=== PATIENT | male | born 1985 | race Caucasian/White ===

== ENCOUNTER 2024-10-01 15:19 | Inpatient (IN) | payer OTHER ==
[2024-10-01] MEDS ORDERED: LORazepam 1 MG/0.5 ML VIAL IV PRN (15:42)
--- NOTE | 2024-10-01 15:44 | ED ---
General Adult HPI - General Chief complaint: Alcohol Stated complaint: ETOH,Mental health Time Seen by Provider: 10/01/24 15:39 Source: patient, EMS Limitations: altered mental status - History of Present Illness Initial comments: Dictation was produced using [employer] dictation software. please excuse any grammatical, word or spelling errors. Chief Complaint: 38-year-old male presents with alcohol withdrawal treatment History of Present Illness: Patient 38-year-old male. Patient refusing to speak however will respond with yes or no. Apparently patient is here for treatment of alcohol withdrawal he was trying to check in at [facility] however he had a breath alcohol of greater than 300 and was brought to the emergency department for medical clearance. Patient denies any complaints except for total body pain. Denies any abdominal pain. No nausea vomiting. States that he has been hospitalized for alcohol withdrawal in the past. Drinks pint of liquor daily. The ROS documented in this emergency department record has been reviewed and confirmed by me. Those systems with pertinent positive or negative responses have been documented in the HPI. All other systems are other negative and/or noncontributory. Review of Systems ROS Statement: Those systems with pertinent positive or pertinent negative responses have been documented in the HPI. ROS Other: All systems not noted in ROS Statement are negative. General Exam - General Exam Comments Initial Comments: PHYSICAL EXAM: General Impression: Alert and oriented, not in acute distress HEENT: Normocephalic atraumatic, extra-ocular movements intact, pupils equal and reactive to light bilaterally, mucous membranes moist. Cardiovascular: Heart regular rate and rhythm Chest: Able to complete full sentences, no retractions, no tachypnea Abdomen: abdomen soft, non-tender, non-distended, no organomegaly Musculoskeletal: Pulses present and equal in all extremities, no peripheral edema Motor: no focal deficits noted Neurological: CN II-XII grossly intact, no focal motor or sensory deficits noted Skin: Intact with no visualized rashes Psych: Normal affect and mood Limitations: altered mental status Course Vital Signs 10/01/24 15:21 Pulse Rate 60 Respiratory 17 Rate Blood Pressure 141/90 O2 Sat by Pulse 100 Oximetry EKG Findings - EKG Comments: EKG Findings:: My EKG interpretation: Ventricular rate 64, sinus rhythm, NE 167, QRS 101, QTc 434. No NE prolongation, no QTC prolongation, no ST or T-wave changes noted. Overall, this EKG is unremarkable Medical Decision Making - Medical Decision Making Was pt. sent in by a medical professional or institution (, PA, MANAGER ACTUARIAL, urgent care, hospital, or shelter...) When possible be specific @ -No Did you speak to anyone other than the patient for history (EMS, parent, family, police, friend...)? What history was obtained from this source @ -No Did you review nursing and triage notes (agree or disagree)? Why? @ -I reviewed and agree with nursing and triage notes Were old charts reviewed (outside hosp., previous admission, EMS record, old EKG, old radiological studies, urgent care reports/EKG's, shelter records)? Report findings @ -No old charts were reviewed Differential Diagnosis (chest pain, altered mental status, abdominal pain women, abdominal pain men, vaginal bleeding, musculoskeletal, weakness, fever, dyspnea, syncope, headache, dizziness, GI bleed, back pain, seizure, CVA, palpatations, mental health)? @ -Not applicable EKG interpreted by me (3pts min.). @ -None done X-rays interpreted by me (1pt min.). @ -None done CT interpreted by me (1pt min.). @ -None done U/S interpreted by me (1pt. min.). @ -None done What testing was considered but not performed or refused? (CT, X-rays, U/S, labs)? Why? @ -None What meds were considered but not given or refused? Why? @ -None Was smoking cessation discussed for >3mins.? @ -No Were there social determinants of health that impacted care today? How? (Homelessness, low income, unemployed, alcoholism, drug addiction, transportation, low edu. Level, literacy, decrease access to med. care, intermediate, rehab)? @ -Alcohol dependence Was there de-escalation of care discussed even if they declined (Discuss DNR or withdrawal of care, Hospice)? DNR status @ -No What co-morbidities impacted this encounter? (DM, HTN, Smoking, COPD, CAD, Cancer, CVA, ARF, Chemo, Hep., AIDS, mental health diagnosis, sleep apnea, morbid obesity)? @ -None Was patient admitted / discharged? Hospital course, mention meds given and route, prescriptions, significant lab abnormalities, going to OR and other pertinent info. @ -38-year-old alcoholic male presents to the emergency department for medical clearance at [facility]. Patient states he drinks large amounts of alcohol daily. He did say yes to being admitted for alcohol withdrawal. There is concern that patient is high risk. Patient well-appearing at the bedside. He will be admitted for inpatient alcohol withdrawal monitoring and treatment. Case discussed with hospitalist for admission Did you discuss the management of the patient with other professionals (professionals i.e. , PA, MANAGER ACTUARIAL, lab, RT, psych nurse, social work nurse, tile setter supervisor, teacher, sewage reticulation drafting officer, director of casework department)? Give summary @ -No Was critical care preformed (if so, how long)? @ -No Undiagnosed new problem with uncertain prognosis? @ -No Drug Therapy requiring intensive monitoring for toxicity (Heparin, Nitro, Insulin, Cardizem)? @ -No Were any procedures done? @ -No Diagnosis/symptom? Acute, or Chronic, or Acute on Chronic? Uncomplicated (without systemic symptoms) or Complicated (systemic symptoms)? @ -Alcohol withdrawal Side effects of treatment? @ -No Exacerbation, Progression, or Severe Exacerbation? @ -No Poses a threat to life or bodily function? How? (Chest pain, USA, IN, pneumonia, PE, COPD, DKA, ARF, appy, cholecystitis, CVA, Diverticulitis, Homicidal, Multani icidal, threat to staff... and all critical care pts) @ -yes - Lab Data Result diagrams: 10/01/24 17:20 10/01/24 15:57 Lab Results 10/01/24 10/01/24 10/01/24 Range/Units 15:30 15:57 17:20 WBC 10.61 H (4.50-10.00) 10*3/uL RBC 4.21 L (4.40-5.60) 10*6/uL Hgb 15.0 (13.0-17.0) g/dL Hct 42.0 (39.6-50.0) % MCV 99.8 H (80.0-97.0) fL MCH 35.6 H (27.0-32.0) pg MCHC 35.7 (32.0-37.0) g/dL Plt Count 172 (140-440) 10*3/uL MPV 9.8 (9.5-12.2) fL Immature Gran % (Auto) 0.4 % Neutrophils % 75.8 % Lymphocytes % 20.7 % Monocytes % 2.5 % Eosinophils % 0.3 % Basophils % 0.3 % Immature Gran # 0.04 (0.00-0.04) 10*3/uL Neutrophils # 8.05 H (1.80-7.70) 10*3/uL Lymphocytes # 2.20 (0.90-5.00) 10*3/uL Monocytes # 0.26 (0.20-1.00) 10*3/uL Eosinophils # 0.03 L (0.04-0.35) 10*3/uL Basophils # 0.03 (0.00-0.10) 10*3/uL Sodium 139 (137-145) mmol/L Potassium 4.5 (3.5-5.1) mmol/L Chloride 109 H (98-107) mmol/L Carbon Dioxide 19 L (22-30) mmol/L Anion Gap 11 mmol/L BUN 11 (9-20) mg/dL Creatinine 0.68 (0.66-1.25) mg/dL Est GFR (CKD-EPI)AfAm >90 (>60 ml/min/1.73 sqM) Est GFR (CKD-EPI)NonAf >90 (>60 ml/min/1.73 sqM) Glucose 81 (74-99) mg/dL Calcium 7.6 L (8.4-10.2) mg/dL Magnesium 2.1 (1.6-2.3) mg/dL Total Bilirubin 1.1 (0.2-1.3) mg/dL AST 45 (17-59) U/L ALT 22 (4-49) U/L Alkaline Phosphatase 22 L (38-126) U/L Total Protein 6.9 (6.3-8.2) g/dL Albumin 4.1 (3.5-5.0) g/dL Lipase 99 (23-300) U/L Urine Opiates Screen Not Detected (NotDetected) Ur Oxycodone Screen Not Detected (NotDetected) Urine Methadone Screen Not Detected (NotDetected) Ur Barbiturates Screen Not Detected (NotDetected) U Tricyclic Antidepress Not Detected (NotDetected) Ur Phencyclidine Scrn Not Detected (NotDetected) Ur Amphetamines Screen Not Detected (NotDetected) U Methamphetamines Scrn Not Detected (NotDetected) U Benzodiazepines Scrn Not Detected (NotDetected) Urine Cocaine Screen Not Detected (NotDetected) U Marijuana (THC) Screen Detected H (NotDetected) Serum Alcohol 251 H* mg/dL Disposition Clinical Impression: Alcohol withdrawal syndrome Disposition: ADMITTED IP TO THIS [facility] Condition: Fair Referrals: None,Stated [Primary Care Provider] - 1-2 days Decision Time: 17:42
[2024-10-01 16:30] LABS: Amphetamine Screen,Urine Not Detected (NotDetected); Barbiturate Screen,Urine Not Detected (NotDetected); Benzodiazepines Screen,Urine Not Detected (NotDetected); Cocaine Screen,Urine Not Detected (NotDetected); Methadone Screen, Urine Not Detected (NotDetected); Opiate Screen,Urine Not Detected (NotDetected); Oxycodone Screen, Urine Not Detected (NotDetected); Phencyclidine Screen,Urine Not Detected (NotDetected); Tricyclic Antidepressant,Urine Not Detected (NotDetected); Urn Cannabinoid Scrn Detected (NotDetected)
[2024-10-01 16:40] LABS: ALT 22 U/L (4-49); African American GFR (CKD) >90 (>60 ml/min/1.73 sqM); Anion Gap 11 mmol/L; Blood Urea Nitrogen 11 mg/dL (9-20); Calcium 7.6 mg/dL (8.4-10.2); Carbon Dioxide 19 mmol/L (22-30); Chloride 109 mmol/L (98-107); Glucose 81 mg/dL (74-99); Lipase 99 U/L (23-300); Non-African American GFR(CKD) >90 (>60 ml/min/1.73 sqM); Sodium 139 mmol/L (137-145); Total Bilirubin 1.1 mg/dL (0.2-1.3)
[2024-10-01 16:43] LABS: Alcohol 251 mg/dL; Potassium 4.5 mmol/L (3.5-5.1)
[2024-10-01 16:44] LABS: AST 45 U/L (17-59); Albumin 4.1 g/dL (3.5-5.0); Alkaline Phosphatase 22 U/L (38-126); Magnesium 2.1 mg/dL (1.6-2.3); Total Protein 6.9 g/dL (6.3-8.2)
[2024-10-01] MEDS: SODIUM CHLORIDE 0.9% 1,000 ML IV STA (17:15)
[2024-10-01 17:37] LABS: Basophils # (A) 0.03 10*3/uL (0.00-0.10); Basophils % (A) 0.3 %; Eosinophils # (A) 0.03 10*3/uL (0.04-0.35); Eosinophils % (A) 0.3 %; Lymphocytes % (A) 20.7 %; MCH 35.6 pg (27.0-32.0); MCHC 35.7 g/dL (32.0-37.0); MCV 99.8 fL (80.0-97.0); Mean Platelet Volume 9.8 fL (9.5-12.2); Monocytes # (A) 0.26 10*3/uL (0.20-1.00); Monocytes % (A) 2.5 %; Neutrophils # (A) 8.05 10*3/uL (1.80-7.70); Neutrophils % (A) 75.8 %; Platelet Count 172 10*3/uL (140-440); RBC 4.21 10*6/uL (4.40-5.60); RDW 12.5 % (11.5-14.5); WBC 10.61 10*3/uL (4.50-10.00)
[2024-10-01] MEDS ORDERED: NALOXONE 0.4 MG/ML 1 ML VIAL IV PRN (17:40)
[2024-10-01] MEDS: SODIUM CHLORIDE 0.9% 1,000 ML IV SCH (19:15)
[2024-10-01] MEDS ORDERED: ACETAMINOPHEN TAB 325 MG TAB PO PRN (19:19)
--- NOTE | 2024-10-01 19:26 | P.HPIM ---
History of Present Illness H&P Date: 10/01/24 History of present illness; Patient is a 38-year-old male with alcohol use disorder who presents for alcohol withdrawal. Patient is poor historian. Patient was attempting to check into [place], however alcohol was greater than 300 and send to emergency room for medical clearance. He is denying any abdominal pain, nausea, vomiting. He endorses drinking a pint of liquor daily. He has had alcohol withdrawal in the past. He also endorses withdrawal seizures and delirium tremens but withdrawing in the past. He has no other complaints at this time. Spoke with the ER physician, patient admission was accepted by internal medicine service for treatment. REVIEW OF SYSTEMS: Pertinent positives and negatives noted in HPI. PHYSICAL EXAMINATION: Vitals reviewed GENERAL: Resting comfortably in bed. EYES: PERRL, no scleral injection or icterus. No vision loss HENT: Normocephalic, atraumatic, hearing grossly intact, moist mucous membranes NECK: No tracheal deviation, full range of motion. CARDIOVASCULAR: S1 and S2 present. Tachycardic. No murmurs, rubs, or gallops. PULMONARY: Chest is clear to auscultation, no wheezing, rhonchi, or crackles. ABDOMEN: Soft, nontender, nondistended. No palpable organomegaly. MUSCULOSKELETAL: No apparent joint swelling and deformities. EXTREMITIES: No apparent cyanosis, clubbing. No pedal edema. NEUROLOGICAL: Alert and oriented. Gross neurological examination with no apparent focal deficits. Mild hand tremor. SKIN: No apparent rashes. ER FINDINGS: Labs significant for WBC 10.6, bicarb 19, calcium 7.6, alkaline phosphatase 22, urine tox with marijuana, serum alcohol 251, lipase 99 EKG with findings of ventricular rate 64, sinus rhythm, IA 167, QRS 101, QTc 434. No IA prolongation, no QTC prolongation, no ST or T-wave changes noted Assessment and Plan: In summary, Patient is a 38-year-old male with alcohol use disorder who presents for alcohol withdrawal. #Alcohol dependence with impending withdrawal #Leukocytosis, likely reactive - Alcohol 251, last drink was 5/8 in AM - CIWA protocol with Ativan IVP in place Daily thiamine and folic acid - Monitor for Dts Seizure precautions monitor daily electrolytes - social security specialist consult Chronic Medical Conditions #Depression #Seizures Resume home medications DVT ppx: Subq Lovenox 40 meq daily Code status: Full code F: PO E: Replete as needed N: Heart healthy diet A: Ambulatory Anticipated discharge place: Home Anticipated discharge time: 2 to 3 days Dictation was produced using [employer] dictation software. Please excuse any gramm atical, word or spelling errors. I saw and evaluated the patient during the hoyos and critical portions of this encounter, and discussed the case in detail with the resident author of this note, I agree with the Assessment and Plan, and my changes, if any, are highlighted in blue. Past Medical History Past Medical History: Unable to Obtain History of Any Multi-Drug Resistant Organisms: None Reported Past Surgical History: Unable to Obtain Past Psychological History: Unable to Obtain Past Alcohol Use History: Heavy Past Drug Use History: Unable to Obtain Medications and Allergies Home Medications Medication Instructions Recorded Confirmed Type Citalopram Hydrobromide [CeleXA] 40 mg PO HS 10/01/24 10/01/24 History Finasteride 1 mg PO HS 10/01/24 10/01/24 History lamoTRIgine [LaMICtal] 100 mg PO BID 10/01/24 10/01/24 History traZODone HCL [Desyrel] 50 mg PO HS 10/01/24 10/01/24 History Allergies Allergy/AdvReac Type Severity Reaction Status Date / Time No Known Allergies Allergy Verified 10/01/24 23:06 Physical Exam Osteopathic Statement: *. No significant issues noted on an osteopathic structural exam other than those noted in the History and Physical/Consult. Vitals: Vital Signs Pulse Resp BP Pulse Ox 10/01/24 15:21 60 17 141/90 100 Intake and Output 10/01/24 10/01/24 10/01/24 06:59 14:59 22:59 Other: Weight 75 kg Results CBC & Chem 7: 10/01/24 17:20 10/01/24 15:57 Labs: Abnormal Lab Results - Last 24 Hours (Table) 10/01/24 10/01/24 10/01/24 Range/Units 15:30 15:57 17:20 WBC 10.61 H (4.50-10.00) 10*3/uL RBC 4.21 L (4.40-5.60) 10*6/uL MCV 99.8 H (80.0-97.0) fL MCH 35.6 H (27.0-32.0) pg Neutrophils # 8.05 H (1.80-7.70) 10*3/uL Eosinophils # 0.03 L (0.04-0.35) 10*3/uL Chloride 109 H (98-107) mmol/L Carbon Dioxide 19 L (22-30) mmol/L Calcium 7.6 L (8.4-10.2) mg/dL Alkaline Phosphatase 22 L (38-126) U/L U Marijuana (THC) Screen Detected H (NotDetected) Serum Alcohol 251 H* mg/dL
[2024-10-01] MEDS: LORazepam 1 MG/0.5 ML VIAL IV PRN (20:48)
[2024-10-01] MEDS: traZODone HCL 50 MG TAB PO SCH (22:18)
[2024-10-01] MEDS: CITALOPRAM HYDROBROMIDE 20 MG TAB PO SCH (22:18)
[2024-10-01] MEDS: lamoTRIgine 100 MG TAB PO SCH (22:18)
[2024-10-01] MEDS: THIAMINE 100 MG TAB PO SCH (22:18)
[2024-10-01] MEDS: FOLIC ACID-VIT B COMPLEX-VIT C 1 CAP PO SCH (22:30)
[2024-10-01] MEDS: ENOXAPARIN 40 MG/0.4 ML SYRINGE SQ STA (22:31)
[2024-10-02] MEDS: LORazepam 1 MG/0.5 ML VIAL IV PRN (05:38)
[2024-10-02 07:48] VITALS: BP 120/77; PULSE 69; RESP 18; TEMP 98.5
[2024-10-02 08:21] LABS: Basophils # (A) 0.05 X 10*3/uL (0.00-0.10); Basophils % (A) 0.7 %; Eosinophils % (A) 1.4 %; HCT 40.1 % (39.6-50.0); Lymphocytes # (A) 1.85 X 10*3/uL (0.90-5.00); Lymphocytes % (A) 25.9 %; MCH 35.2 pg (27.0-32.0); MCHC 34.9 g/dL (32.0-37.0); MCV 100.8 FL (80.0-97.0); Mean Platelet Volume 10.1 FL (9.5-12.2); Monocytes # (A) 0.38 X 10*3/uL (0.20-1.00); Monocytes % (A) 5.3 %; NRBC Per 100 WBC 0 X 10*3/uL (0.00-0.01); Neutrophils # (A) 4.73 X 10*3/uL (1.80-7.70); Neutrophils % (A) 66.4 %; Platelet Count 175 X 10*3/uL (140-440); RBC 3.98 X 10*6/uL (4.40-5.60); RDW 12.7 % (11.5-14.5); WBC 7.13 X 10*3/uL (4.50-10.00)
[2024-10-02 08:27] LABS: BUN/Creat Ratio 11.75 Ratio (12.00-20.00); Blood Urea Nitrogen 9.4 mg/dL (9.0-27.0); Glucose 90 mg/dL (70-110)
[2024-10-02 08:28] LABS: ALT 19 U/L (10-49); AST 16 U/L (14-35); Albumin 3.9 g/dL (3.8-4.9); Albumin/Globulin Ratio 1.77 Ratio (1.60-3.17); Alkaline Phosphatase 48 U/L (41-126); Calcium 8.5 mg/dL (8.7-10.3); Carbon Dioxide 21.5 mmol/L (21.6-31.8); Chloride 110 mmol/L (96-109); Globulin 2.2 g/dL (1.6-3.3); Potassium 4.2 mmol/L (3.5-5.5); Sodium 141 mmol/L (135-145); Total Bilirubin <0.2 mg/dL (0.3-1.2); Total Protein 6.1 g/dL (6.2-8.2)
[2024-10-02] MEDS: ENOXAPARIN 40 MG/0.4 ML SYRINGE SQ SCH (09:24)
--- NOTE | 2024-10-02 15:12 | P.PN ---
Subjective Progress Note Date: 10/02/24 Hospital Course: Patient is a 38-year-old male with alcohol use disorder who presents for alcohol withdrawal. Patient is poor historian. Patient was attempting to check into [place], however alcohol was greater than 300 and send to emergency room for medical clearance. He is denying any abdominal pain, nausea, vomiting. He endorses drinking a pint of liquor daily. He has had alcohol withdrawal in the past. He also endorses withdrawal seizures and delirium tremens but withdrawing in the past. He has no other complaints at this time. ER FINDINGS: Labs significant for WBC 10.6, bicarb 19, calcium 7.6, alkaline phosphatase 22, urine tox with marijuana, serum alcohol 251, lipase 99 EKG with findings of ventricular rate 64, sinus rhythm, IN 167, QRS 101, QTc 434. No IN prolongation, no QTC prolongation, no ST or T-wave changes noted Spoke with the ER physician, patient admission was accepted by internal medicine service for treatment. 10/02: Patient was seen and examined at bedside, does not appear to be in acute distress, not intoxicated. Patient was requesting his Ativan to be switched to Ativan/Subutex as it was previously helpful, also requested 1 mg of finasteride as well as Chantix that he is successfully using to quit smoking. Patient shared that he is cutting down on his cocaine use. His CIWA's are around 6 and 8 today Patient will not be provided with Subutex, high risk of sedation with concomitant use of Ativan, patient is also active alcoholic, thus, not an ideal candidate for buprenorphine, he can readdress it with his primary care physician or clinical exercise specialist. Pertinent positives and negatives as discussed above, a complete review of syst ems was performed and all other systems are negative. Vitals Signs Reviewed. General: [nontoxic], [no distress], [appears at stated age] Derm: [warm], [dry] Head: [atraumatic], [normocephalic], [symmetric] Eyes: [EOMI], [no lid lag], [anicteric sclera] Mouth: [no lip lesion], [mucus membranes moist] Cardiovascular: [S1S2 reg], [no murmur] Lungs: [CTA bilateral], [no rhonchi, no rales] , [no accessory muscle use] Abdominal: [soft], [ nontender to palpation], [no guarding], [no appreciable org anomegaly] Ext: [no gross muscle atrophy], [no edema], [no contractures] Neuro: [ CN II-XI grossly intact], [no focal neuro deficits] Psych: [Alert], [oriented], [appropriate affect] Assessment and Plan: Alcohol intoxication Alcohol withdrawal Leukocytosis, reactive, resolved - Alcohol 251, last drink was 5/8 in AM - WA protocol with Ativan IVP in place Daily thiamine and folic acid - Monitor for Dts Seizure precautions monitor daily electrolytes - group social worker consult Cocaine use disorder -Patient requested Subutex, as above, will proceed with Ativan for now, patient to follow-up with primary care physician and clinical exercise specialist Tobacco use disorder -Patient requested varenicline, patient will not be provided with prescription, high risk for seizure given diagnosed history of seizure disorder, active alcohol use, withdrawal Depression: Continue Celexa 40 mg nightly Seizure disorder continue Lamictal 100 mg twice daily DVT ppx: Lovenox Code status: Full code Anticipated discharge place: Home Anticipated discharge time: 10/03 Objective - Vital Signs Vital signs: Vital Signs Temp 98.5 F 10/02/24 07:10 Pulse 69 10/02/24 07:10 Resp 18 10/02/24 07:10 BP 120/77 10/02/24 07:10 Pulse Ox 97 10/02/24 07:10 FiO2 Intake & Output 10/01/24 10/02/24 10/02/24 18:59 06:59 18:59 Intake Total 0 Balance 0 Weight 75 kg 75 kg Intake: Oral 0 Other: Voiding Method Toilet # Voids 0 - Labs CBC & Chem 7: 10/02/24 05:15 10/02/24 05:15 Labs: Abnormal Lab Results - Last 24 Hours (Table) 10/01/24 10/01/24 10/01/24 Range/Units 15:30 15:57 17:20 WBC 10.61 H (4.50-10.00) 10*3/uL RBC 4.21 L (4.40-5.60) 10*6/uL MCV 99.8 H (80.0-97.0) fL MCH 35.6 H (27.0-32.0) pg Neutrophils # 8.05 H (1.80-7.70) 10*3/uL Eosinophils # 0.03 L (0.04-0.35) 10*3/uL Chloride 109 H (98-107) mmol/L Carbon Dioxide 19 L (22-30) mmol/L BUN/Creatinine Ratio (12.00-20.00) Ratio Calcium 7.6 L (8.4-10.2) mg/dL Total Bilirubin (0.3-1.2) mg/dL Alkaline Phosphatase 22 L (38-126) U/L Total Protein (6.2-8.2) g/dL U Marijuana (THC) Screen Detected H (NotDetected) Serum Alcohol 251 H* mg/dL 10/02/24 10/02/24 Range/Units 05:15 05:15 WBC (4.50-10.00) 10*3/uL RBC 3.98 L (4.40-5.60) 10*6/uL MCV 100.8 H (80.0-97.0) fL MCH 35.2 H (27.0-32.0) pg Neutrophils # (1.80-7.70) 10*3/uL Eosinophils # (0.04-0.35) 10*3/uL Chloride 110 H (98-107) mmol/L Carbon Dioxide 21.5 L (22-30) mmol/L BUN/Creatinine Ratio 11.75 L (12.00-20.00) Ratio Calcium 8.5 L (8.4-10.2) mg/dL Total Bilirubin <0.2 L (0.3-1.2) mg/dL Alkaline Phosphatase (38-126) U/L Total Protein 6.1 L (6.2-8.2) g/dL U Marijuana (THC) Screen (NotDetected) Serum Alcohol mg/dL
--- NOTE | 2024-10-02 16:54 | P.DS ---
Providers Date of admission: 10/01/24 17:41 Attending physician: Ivan Jarquin Primary care physician: Stated None Hospital Course: Discharge Diagnosis: Left AMA Alcohol intoxication Alcohol withdrawal Cocaine use disorder Tobacco use disorder Depression Seizure disorder Hospital Course: Patient is a 38-year-old male with alcohol use disorder who presents for alcohol withdrawal. Patient is poor historian. Patient was attempting to check into [place], however alcohol was greater than 300 and send to emergency room for medical clearance. He is denying any abdominal pain, nausea, vomiting. He endorses drinking a pint of liquor daily. He has had alcohol withdrawal in the past. He also endorses withdrawal seizures and delirium tremens but withdrawing in the past. He has no other complaints at this time. ER FINDINGS: Labs significant for WBC 10.6, bicarb 19, calcium 7.6, alkaline phosphatase 22, urine tox with marijuana, serum alcohol 251, lipase 99 EKG with findings of ventricular rate 64, sinus rhythm, AL 167, QRS 101, QTc 434. No AL prolongation, no QTC prolongation, no ST or T-wave changes noted Spoke with the ER physician, patient admission was accepted by internal medicine service for treatment. 10/02: Patient was seen and examined at bedside, does not appear to be in acute distress, not intoxicated. Patient was requesting his Ativan to be switched to Ativan/Subutex as it was previously helpful, also requested 1 mg of finasteride as well as Chantix that he is successfully using to quit smoking. Patient shared that he is cutting down on his cocaine use. His CIWA's are around 6 and 8 today Patient will not be provided with Subutex, high risk of sedation with concomitant use of Ativan, patient is also active alcoholic, thus, not an ideal candidate for buprenorphine, he can readdress it with his primary care physician or environmental services specialist. Patient left AMA Patient Condition at Discharge: Fair Plan - Discharge Summary Discharge Rx Participant: No New Discharge Prescriptions: No Action traZODone HCL [Desyrel] 50 mg PO HS Citalopram Hydrobromide [CeleXA] 40 mg PO HS lamoTRIgine [LaMICtal] 100 mg PO BID Finasteride 1 mg PO HS Discharge Medication List Citalopram Hydrobromide [CeleXA] 40 mg PO HS 10/01/24 [History] Finasteride 1 mg PO HS 10/01/24 [History] lamoTRIgine [LaMICtal] 100 mg PO BID 10/01/24 [History] traZODone HCL [Desyrel] 50 mg PO HS 10/01/24 [History] Follow up Appointment(s)/Referral(s): None,Stated [Primary Care Provider] - 1-2 days Discharge Disposition: LEFT AGAINST MEDICAL ADVICE
[2024-10-02] MEDS ORDERED: FINASTERIDE 1 MG PO SCH (21:00)
== END 2024-10-02 16:27 | disposition left against medical advice (07) | DRG 894 ==
LOC: EC 15:19 → 4SSUR 17:41
PROVIDERS: ADMIT Student in an Organized Health Care Education/Training Program; ATTEND Student in an Organized Health Care Education/Training Program
PROC: HZ2ZZZZ Detoxification Services for Substance Abuse Treatment (ICD-10-PCS; principal; 2024-10-01)
DX: F10.239 Alcohol dependence with withdrawal, unspecified (principal); D72.829 Elevated white blood cell count, unspecified; F10.229 Alcohol dependence with intoxication, unspecified; F14.10 Cocaine abuse, uncomplicated; G40.909 Epilepsy, unspecified, not intractable, without status epilepticus; F32.A Depression, unspecified; Y90.7 Blood alcohol level of 200-239 mg/100 ml; F17.200 Nicotine dependence, unspecified, uncomplicated; Z53.29 Procedure and treatment not carried out because of patient's decision for other reasons; Z79.899 Other long term (current) drug therapy; Z71.41 Alcohol abuse counseling and surveillance of alcoholic; Z71.6 Tobacco abuse counseling
CPT/HCPCS: 36415; 80053; 80175; 80306; 80320; 83690; 83735; 85025; 93005; 96374; 96376; 99285

== ENCOUNTER 2024-10-02 18:39 | Inpatient (IN) | payer OTHER ==
[2024-10-02] MEDS ORDERED: LORazepam 1 MG/0.5 ML VIAL IV PRN ×2 (19:24)
--- NOTE | 2024-10-02 19:30 | ED ---
General Adult HPI - General Chief complaint: Alcohol Stated complaint: alcohol detox Time Seen by Provider: 10/02/24 19:14 Source: patient Mode of arrival: ambulatory Limitations: no limitations - History of Present Illness Initial comments: Dictation was produced using [employer] dictation software. please excuse any grammatical, word or spelling errors. Chief Complaint: 38-year-old male presents to the emergency department for alcohol detoxification History of Present Illness: Patient 38-year-old male he was here yesterday for the same issue. He left AMA. States that he is here today and is serious about quitting alcohol. Patient states he had some alcohol today. He wants to quit everything including opiate abuse. Patient denies any symptoms at this time. States that he left AMA because it was not clear what his treatment plan was during the admission The ROS documented in this emergency department record has been reviewed and confirmed by me. Those systems with pertinent positive or negative responses have been documented in the HPI. All other systems are other negative and/or noncontributory. - Related Data Home Medications Medication Instructions Recorded Confirmed Citalopram Hydrobromide [CeleXA] 40 mg PO HS 10/01/24 10/02/24 Finasteride 1 mg PO HS 10/01/24 10/02/24 lamoTRIgine [LaMICtal] 100 mg PO BID 10/01/24 10/02/24 traZODone HCL [Desyrel] 50 mg PO HS 10/01/24 10/02/24 Allergies Allergy/AdvReac Type Severity Reaction Status Date / Time No Known Allergies Allergy Verified 10/02/24 20:35 Review of Systems ROS Statement: Those systems with pertinent positive or pertinent negative responses have been documented in the HPI. ROS Other: All systems not noted in ROS Statement are negative. Past Medical History Past Medical History: No Reported History History of Any Multi-Drug Resistant Organisms: None Reported Past Surgical History: Appendectomy Past Psychological History: Anxiety, Depression Smoking Status: Current every day smoker Past Alcohol Use History: Daily, Heavy Past Drug Use History: Opiates, Prescription Drug Abuse General Exam - General Exam Comments Initial Comments: PHYSICAL EXAM: General Impression: Alert and oriented x3, not in acute distress HEENT: Normocephalic atraumatic, extra-ocular movements intact, pupils equal and reactive to light bilaterally, mucous membranes moist. Cardiovascular: Heart regular rate and rhythm Chest: Able to complete full sentences, no retractions, no tachypnea Abdomen: abdomen soft, non-tender, non-distended, no organomegaly Musculoskeletal: Pulses present and equal in all extremities, no peripheral edema Motor: no focal deficits noted Neurological: CN II-XII grossly intact, no focal motor or sensory deficits noted Skin: Intact with no visualized rashes Psych: Normal affect and mood Limitations: no limitations Course Vital Signs 10/02/24 19:09 Temperature 98 F Pulse Rate 100 Respiratory 20 Rate Blood Pressure 112/69 O2 Sat by Pulse 98 Oximetry EKG Findings - EKG Comments: EKG Findings:: My EKG interpretation: Ventricular rate 81, sinus rhythm, OR interval 157, QRS 110, QTc 436. No OR prolongation, no QTC prolongation, no ST or T-wave changes noted. Overall, this EKG is unremarkable Medical Decision Making - Medical Decision Making Was pt. sent in by a medical professional or institution (, PA, [employer], urgent care, hospital, or senior care...) When possible be specific @ -No Did you speak to anyone other than the patient for history (EMS, parent, family, police, friend...)? What history was obtained from this source @ -No Did you review nursing and triage notes (agree or disagree)? Why? @ -I reviewed and agree with nursing and triage notes Were old charts reviewed (outside hosp., previous admission, EMS record, old EKG, old radiological studies, urgent care reports/EKG's, senior care records)? Report findings @ -No old charts were reviewed Differential Diagnosis (chest pain, altered mental status, abdominal pain women, abdominal pain men, vaginal bleeding, musculoskeletal, weakness, fever, dyspnea, syncope, headache, dizziness, GI bleed, back pain, seizure, CVA, palpatations, mental health)? @ -Not applicable EKG interpreted by me (3pts min.). @ -See above X-rays interpreted by me (1pt min.). @ -None done CT interpreted by me (1pt min.). @ -None done U/S interpreted by me (1pt. min.). @ -None done What testing was considered but not performed or refused? (CT, X-rays, U/S, labs)? Why? @ -None What meds were considered but not given or refused? Why? @ -None Was smoking cessation discussed for >3mins.? @ -No Were there social determinants of health that impacted care today? How? (Homelessness, low income, unemployed, alcoholism, drug addiction, transportation, low edu. Level, literacy, decrease access to med. care, residential, rehab)? @ -Alcohol dependence Was there de-escalation of care discussed even if they declined (Discuss DNR or withdrawal of care, Hospice)? DNR status @ -No What co-morbidities impacted this encounter? (DM, HTN, Smoking, COPD, CAD, Canc er, CVA, ARF, Chemo, Hep., AIDS, mental health diagnosis, sleep apnea, morbid obesity)? @ -None Was patient admitted / discharged? Hospital course, mention meds given and route, prescriptions, significant lab abnormalities, going to OR and other pertinent info. @ -38-year-old alcoholic male seeking alcohol withdrawal treatment. Vital signs stable. Physical examination benign. Serum alcohol is 253 rest of labs unremarkable. Patient will be admitted. Case discussed hospitalist for admission Did you discuss the management of the patient with other professionals (professionals i.e. , PA, [employer], lab, RT, psych nurse, social science research assistant, continuous drier helper, teacher, professional security officer, telehealth case manager)? Give summary @ -See above Was critical care preformed (if so, how long)? @ -No Undiagnosed new problem with uncertain prognosis? @ -No Drug Therapy requiring intensive monitoring for toxicity (Heparin, Nitro, Insulin, Cardizem)? @ -No Were any procedures done? @ -No Diagnosis/symptom? Acute, or Chronic, or Acute on Chronic? Uncomplicated (without systemic symptoms) or Complicated (systemic symptoms)? @ -Alcohol dependence Side effects of treatment? @ -No Exacerbation, Progression, or Severe Exacerbation? @ -No Poses a threat to life or bodily function? How? (Chest pain, [place], [place], pneumonia, PE, COPD, DKA, ARF, appy, cholecystitis, CVA, Diverticulitis, Homicidal, Suicidal, threat to staff... and all critical care pts) @ -yes - Lab Data Result diagrams: 10/02/24 19:41 10/02/24 19:41 Lab Results 10/02/24 10/02/24 Range/Units 19:41 19:41 WBC 7.35 (4.50-10.00) 10*3/uL RBC 3.71 L (4.40-5.60) 10*6/uL Hgb 13.5 (13.0-17.0) g/dL Hct 36.3 L (39.6-50.0) % MCV 97.8 H (80.0-97.0) fL MCH 36.4 H (27.0-32.0) pg MCHC 37.2 H (32.0-37.0) g/dL Plt Count 157 (140-440) 10*3/uL MPV 9.8 (9.5-12.2) fL Immature Gran % (Auto) 0.3 % Neutrophils % 64.0 % Lymphocytes % 27.9 % Monocytes % 6.8 % Eosinophils % 0.5 % Basophils % 0.5 % Immature Gran # 0.02 (0.00-0.04) 10*3/uL Neutrophils # 4.70 (1.80-7.70) 10*3/uL Lymphocytes # 2.05 (0.90-5.00) 10*3/uL Monocytes # 0.50 (0.20-1.00) 10*3/uL Eosinophils # 0.04 (0.04-0.35) 10*3/uL Basophils # 0.04 (0.00-0.10) 10*3/uL Sodium 137 (137-145) mmol/L Potassium 3.2 L (3.5-5.1) mmol/L Chloride 107 (98-107) mmol/L Carbon Dioxide 18 L (22-30) mmol/L Anion Gap 12 mmol/L BUN 11 (9-20) mg/dL Creatinine 0.74 (0.66-1.25) mg/dL Est GFR (CKD-EPI)AfAm >90 (>60 ml/min/1.73 sqM) Est GFR (CKD-EPI)NonAf >90 (>60 ml/min/1.73 sqM) Glucose 98 (74-99) mg/dL Calcium 8.7 (8.4-10.2) mg/dL Magnesium 2.2 (1.6-2.3) mg/dL Serum Alcohol 253 H* mg/dL Disposition Clinical Impression: Alcohol intoxication Disposition: ADMITTED IP TO THIS HOSP Condition: Fair Referrals: None,Stated [Primary Care Provider] - 1-2 days Decision Time: 19:30
[2024-10-02 19:53] LABS: Basophils # (A) 0.04 10*3/uL (0.00-0.10); Basophils % (A) 0.5 %; Eosinophils # (A) 0.04 10*3/uL (0.04-0.35); Eosinophils % (A) 0.5 %; HCT 36.3 % (39.6-50.0); HGB 13.5 g/dL (13.0-17.0); Lymphocytes # (A) 2.05 10*3/uL (0.90-5.00); Lymphocytes % (A) 27.9 %; MCH 36.4 pg (27.0-32.0); MCHC 37.2 g/dL (32.0-37.0); MCV 97.8 fL (80.0-97.0); Mean Platelet Volume 9.8 fL (9.5-12.2); Monocytes % (A) 6.8 %; Platelet Count 157 10*3/uL (140-440); RBC 3.71 10*6/uL (4.40-5.60); WBC 7.35 10*3/uL (4.50-10.00)
[2024-10-02 20:04] LABS: African American GFR (CKD) >90 (>60 ml/min/1.73 sqM); Anion Gap 12 mmol/L; Blood Urea Nitrogen 11 mg/dL (9-20); Calcium 8.7 mg/dL (8.4-10.2); Carbon Dioxide 18 mmol/L (22-30); Chloride 107 mmol/L (98-107); Glucose 98 mg/dL (74-99); Magnesium 2.2 mg/dL (1.6-2.3); Non-African American GFR(CKD) >90 (>60 ml/min/1.73 sqM); Potassium 3.2 mmol/L (3.5-5.1); Sodium 137 mmol/L (137-145)
[2024-10-02 20:32] LABS: Alcohol 253 mg/dL
[2024-10-02] MEDS ORDERED: NALOXONE 0.4 MG/ML 1 ML VIAL IV PRN (20:47)
--- NOTE | 2024-10-02 21:14 | P.HPIM ---
History of Present Illness H&P Date: 10/02/24 History of present illness; Patient is a 38-year-old male with alcohol use disorder who presents for alcohol withdrawal. Patient left AMA earlier today with same concern. He states he is now willing to quit drinking alcohol. Patient was previously attempting to check into [facility]. He is denying any abdominal pain, nausea, vomiting. He endorses drinking a pint of liquor daily. He has had alcohol withdrawal in the past. He also endorses withdrawal seizures and delirium tremens but withd rawing in the past. He has no other complaints at this time. Spoke with the ER physician, patient admission was accepted by internal medicine service for treatment. REVIEW OF SYSTEMS: Pertinent positives and negatives noted in HPI. PHYSICAL EXAMINATION: Vitals reviewed GENERAL: Resting comfortably in bed. EYES: PERRL, no scleral injection or icterus. No vision loss HENT: Normocephalic, atraumatic, hearing grossly intact, moist mucous membranes NECK: No tracheal deviation, full range of motion. CARDIOVASCULAR: S1 and S2 present. Tachycardic. No murmurs, rubs, or gallops. PULMONARY: Chest is clear to auscultation, no wheezing, rhonchi, or crackles. ABDOMEN: Soft, nontender, nondistended. No palpable organomegaly. MUSCULOSKELETAL: No apparent joint swelling and deformities. EXTREMITIES: No apparent cyanosis, clubbing. No pedal edema. NEUROLOGICAL: Alert and oriented. Gross neurological examination with no apparent focal deficits. Mild hand tremor. SKIN: No apparent rashes. ER FINDINGS: Labs significant for WBC 7.3, hemoglobin 13.5, platelets 157, potassium 3.2, bic arb 18, serum alcohol 253 Assessment and Plan: In summary, Patient is a 38-year-old male with alcohol use disorder who presents for alcohol withdrawal. #Alcohol dependence with impending withdrawal #Alcohol intoxication - Alcohol 253, last drink was 10/02 - [facility] protocol with Ativan IVP in place Daily thiamine and folic acid - Monitor for Dts Seizure precautions monitor daily electrolytes - social welfare research worker consult #Hypokalemia Given potassium chloride 40 mEq once Monitor BMP #History of cocaine use Will not continue with Subutex Continue Ativan as above Chronic Medical Conditions #Depression #Seizures Resume home medications DVT ppx: Early ambulation Code status: Full code F: PO E: Replete as needed N: Heart healthy diet A: Ambulatory Anticipated discharge place: Home Anticipated discharge time: 2 to 3 days Dictation was produced using [employer] dictation software. Please excuse any grammatical, word or spelling errors. The patient was seen and examined independently by me. The case was discussed with resident 10/02/2024. The patient treated for alcohol withdrawal syndrome per [facility] protocol. Continue rest of the treatment as stated above. Past Medical History Past Medical History: No Reported History History of Any Multi-Drug Resistant Organisms: None Reported Past Surgical History: Appendectomy Past Psychological History: Anxiety, Depression Smoking Status: Current every day smoker Past Alcohol Use History: Daily, Heavy Past Drug Use History: Opiates, Prescription Drug Abuse Medications and Allergies Home Medications Medication Instructions Recorded Confirmed Type Citalopram Hydrobromide [CeleXA] 40 mg PO HS 10/01/24 10/02/24 History Finasteride 1 mg PO HS 10/01/24 10/02/24 History lamoTRIgine [LaMICtal] 100 mg PO BID 10/01/24 10/02/24 History traZODone HCL [Desyrel] 50 mg PO HS 10/01/24 10/02/24 History Allergies Allergy/AdvReac Type Severity Reaction Status Date / Time No Known Allergies Allergy Verified 10/02/24 20:35 Physical Exam Vitals: Vital Signs Temp Pulse Resp BP Pulse Ox 10/02/24 19:09 98 F 100 20 112/69 98 Intake and Output 10/02/24 10/02/24 10/02/24 06:59 14:59 22:59 Other: Weight 67.585 kg Results CBC & Chem 7: 10/02/24 19:41 10/02/24 19:41 Labs: Abnormal Lab Results - Last 24 Hours (Table) 10/02/24 10/02/24 Range/Units 19:41 19:41 RBC 3.71 L (4.40-5.60) 10*6/uL Hct 36.3 L (39.6-50.0) % MCV 97.8 H (80.0-97.0) fL MCH 36.4 H (27.0-32.0) pg MCHC 37.2 H (32.0-37.0) g/dL Potassium 3.2 L (3.5-5.1) mmol/L Carbon Dioxide 18 L (22-30) mmol/L Serum Alcohol 253 H* mg/dL
[2024-10-02] MEDS: FOLIC ACID 1 MG TAB PO SCH (21:34)
[2024-10-02] MEDS: THIAMINE 100 MG TAB PO SCH (21:34)
[2024-10-02] MEDS: lamoTRIgine 100 MG TAB PO SCH (21:34)
[2024-10-02] MEDS: POTASSIUM CHLORIDE ER 20 MEQ TAB.ER PO STA (21:34)
[2024-10-02] MEDS: SODIUM CHLORIDE 0.9% 1,000 ML IV SCH (21:34)
[2024-10-02] MEDS: traZODone HCL 50 MG TAB PO SCH (21:34)
[2024-10-03 04:07] VITALS: TEMP 97.9
[2024-10-03 07:26] VITALS: BP 105/71; PULSE 72; RESP 20
[2024-10-03] MEDS: LORazepam 1 MG/0.5 ML VIAL IV PRN (11:07)
--- NOTE | 2024-10-03 11:48 | P.PN ---
Subjective Progress Note Date: 10/03/24 I have seen and evaluated the patient today. Discussed with the resident and agree with the residents finding and plan as documented in the resident's note. Changes highlighted in blue font. Hospital Course: Patient is a 38-year-old male with alcohol use disorder who presents for alcohol withdrawal. Patient left AMA earlier today with same concern. He states he is now willing to quit drinking alcohol. Patient was previously attempting to check into [facility]. He is denying any abdominal pain, nausea, vomiting. He endorses drinking a pint of liquor daily. He has had alcohol withdrawal in the past. He also endorses withdrawal seizures and delirium tremens but withdrawing in the past. He has no other complaints at this time. ER FINDINGS: Labs significant for WBC 7.3, hemoglobin 13.5, platelets 157, potassium 3.2, bicarb 18, serum alcohol 253 Subjective: Patient seen and examined at bedside. No acute events overnight. Pertinent positives and negatives as discussed above, a complete review of systems was performed and all other systems are negative. Vitals: Signs Reviewed Physical Exam: General: nontoxic, no distress, appears at stated age Derm: warm, dry, intact Head: atraumatic, normocephalic, symmetric Eyes: EOMI, anicteric sclera Mouth: no lip lesion, mucus membranes moist Cardiovascular: S1 S2 reg, no murmur, rubs, or gallops Lungs: CTA bilateral, no rhonchi, no rales, no accessory muscle use Abdominal: soft, non-tender to palpataion, no appreciable organomegaly Extremities: no gross muscle atrophy, no edema, no contractures Neuro: Alert, Oriented, CNII-XII grossly intact, gait normal, mild hand tremor Psych: well appearing, appropriate affect Data Received Today: Pertinent Labs: CBC and BMP pending Imaging: N/A Assessment and Plan: In summary, Patient is a 38-year-old male with alcohol use disorder who presents for alcohol withdrawal. #Alcohol dependence with impending withdrawal #Alcohol intoxication - Alcohol 253, last drink was 10/02 - [facility] protocol with Ativan IVP in place, no Ativan given overnight, CI[facility] 0-1 overnight Daily thiamine and folic acid - Monitor for Dts Seizure precautions monitor daily electrolytes - professor of social work consult #Hypokalemia Given potassium chloride 40 mEq once Monitor BMP #History of cocaine use Will not continue with Subutex Continue Ativan as above Chronic Medical Conditions #Depression #Seizures Resume home medications DVT ppx: Early ambulation Code status: Full code F: PO E: Replete as needed N: Heart healthy diet A: Ambulatory Anticipated discharge place: Home Anticipated discharge time: 2 to 3 days Mayda Lubin MD PGY-1 IM Dictation was produced using [employer] dictation software. please excuse any grammatical, word or spelling errors. Objective - Vital Signs Vital signs: Vital Signs Temp 97.9 F 10/03/24 04:00 Pulse 72 10/03/24 07:25 Resp 20 10/03/24 07:25 BP 105/71 10/03/24 07:25 Pulse Ox 98 10/03/24 07:25 FiO2 Intake & Output 10/02/24 10/03/24 10/03/24 18:59 06:59 18:59 Weight 67.585 kg - Labs CBC & Chem 7: 10/02/24 19:41 10/02/24 19:41 Labs: Abnormal Lab Results - Last 24 Hours (Table) 10/02/24 10/02/24 Range/Units 19:41 19:41 RBC 3.71 L (4.40-5.60) 10*6/uL Hct 36.3 L (39.6-50.0) % MCV 97.8 H (80.0-97.0) fL MCH 36.4 H (27.0-32.0) pg MCHC 37.2 H (32.0-37.0) g/dL Potassium 3.2 L (3.5-5.1) mmol/L Carbon Dioxide 18 L (22-30) mmol/L Serum Alcohol 253 H* mg/dL
[2024-10-03 15:55] LABS: BUN/Creat Ratio 13.25 Ratio (12.00-20.00); Blood Urea Nitrogen 10.6 mg/dL (9.0-27.0); Calcium 8.7 mg/dL (8.7-10.3); Carbon Dioxide 22.7 mmol/L (21.6-31.8); Chloride 108 mmol/L (96-109); Glucose 100 mg/dL (70-110); Magnesium 2.2 mg/dL (1.5-2.4); Potassium 4.5 mmol/L (3.5-5.5); Sodium 140 mmol/L (135-145)
[2024-10-03] MEDS ORDERED: CITALOPRAM HYDROBROMIDE 20 MG TAB PO SCH (21:00)
[2024-10-03] MEDS ORDERED: NON FORMULARY DRUG (Finasteride [Finasteride] 1 MG Tablet) PO SCH (21:00)
--- NOTE | 2024-10-04 14:21 | P.DS ---
Providers Date of admission: 10/02/24 20:47 Attending physician: Yaya Lorenzo MD Primary care physician: Stated None Hospital Course: Discharge Diagnosis: Left AMA Alcohol intoxication Alcohol withdrawal Cocaine use disorder Tobacco use disorder Depression Seizure disorder Hospital Course: Patient is a 38-year-old male with alcohol use disorder who presents for alcohol withdrawal. Patient left AMA earlier today with same concern. He states he is now willing to quit drinking alcohol. Patient was previously attempting to check into [place]. He is denying any abdominal pain, nausea, vomiting. He endorses drinking a pint of liquor daily. He has had alcohol withdrawal in the past. Patient left AMA again on 10/03/2024 Patient Condition at Discharge: Fair Plan - Discharge Summary New Discharge Prescriptions: No Action traZODone HCL [Desyrel] 50 mg PO HS Citalopram Hydrobromide [CeleXA] 40 mg PO HS lamoTRIgine [LaMICtal] 100 mg PO BID Finasteride 1 mg PO HS Discharge Medication List Citalopram Hydrobromide [CeleXA] 40 mg PO HS 10/01/24 [History] Finasteride 1 mg PO HS 10/01/24 [History] lamoTRIgine [LaMICtal] 100 mg PO BID 10/01/24 [History] traZODone HCL [Desyrel] 50 mg PO HS 10/01/24 [History] Follow up Appointment(s)/Referral(s): None,Stated [Primary Care Provider] - 1-2 days Discharge Disposition: LEFT AGAINST MEDICAL ADVICE
== END 2024-10-03 12:35 | disposition left against medical advice (07) | DRG 894 ==
LOC: EC 18:39 → 5NMEDONC 20:47
PROVIDERS: ADMIT Internal Medicine; ATTEND Internal Medicine
DX: F10.229 Alcohol dependence with intoxication, unspecified (principal); E87.6 Hypokalemia; F10.239 Alcohol dependence with withdrawal, unspecified; F14.10 Cocaine abuse, uncomplicated; G40.909 Epilepsy, unspecified, not intractable, without status epilepticus; F32.A Depression, unspecified; F11.10 Opioid abuse, uncomplicated; F41.9 Anxiety disorder, unspecified; Y90.8 Blood alcohol level of 240 mg/100 ml or more; F17.200 Nicotine dependence, unspecified, uncomplicated; Z53.29 Procedure and treatment not carried out because of patient's decision for other reasons; Z79.899 Other long term (current) drug therapy
CPT/HCPCS: 36415; 80048; 80320; 83735; 85025; 93005; 96374; 99285

== ENCOUNTER 2024-10-03 15:10 | Observation (INO) | payer OTHER ==
--- NOTE | 2024-10-03 15:34 | ED ---
Alcohol HPI - General Chief Complaint: Alcohol Stated Complaint: ETOH Time Seen by Provider: 10/03/24 15:12 Source: patient, RN notes reviewed, old records reviewed Mode of arrival: ambulatory Limitations: no limitations - History of Present Illness Initial Comments: This is a 38 male to the ER for evaluation he presents to us today for evaluation regards to significant alcohol intoxication. Patient has been here for the last 3 days for similar complaints. Patient states he left this morning went and got more alcohol and drank before he came back. Patient is agitated and combative and difficult historian Complaint: alcohol intoxication, desires rehab, medical clearance for detox facility Last Drink: just SENIOR DATA SCIENTIST -: minute(s) Previous Visits for Alcohol Intoxication?: Yes Recent Trauma: Yes Associated Symptoms: denies other symptoms Treatments Prior to Arrival: none Chronic Alcohol Use: Yes - Related Data Home Medications Medication Instructions Recorded Confirmed Citalopram Hydrobromide [CeleXA] 40 mg PO HS 10/01/24 10/03/24 Finasteride 1 mg PO HS 10/01/24 10/03/24 lamoTRIgine [LaMICtal] 100 mg PO BID 10/01/24 10/03/24 traZODone HCL [Desyrel] 50 mg PO HS 10/01/24 10/03/24 Allergies Allergy/AdvReac Type Severity Reaction Status Date / Time No Known Allergies Allergy Verified 10/03/24 15:34 Review of Systems ROS Statement: Those systems with pertinent positive or pertinent negative responses have been documented in the HPI. ROS Other: All systems not noted in ROS Statement are negative. Past Medical History Past Medical History: No Reported History History of Any Multi-Drug Resistant Organisms: None Reported Past Surgical History: Appendectomy Past Psychological History: Anxiety, Depression Smoking Status: Current every day smoker Past Alcohol Use History: Daily, Heavy Past Drug Use History: Opiates, Prescription Drug Abuse General Exam Limitations: no limitations General appearance: alert, in no apparent distress, appears intoxicated Head exam: Present: atraumatic, normocephalic, normal inspection Eye exam: Present: normal appearance, PERRL, EOMI. Absent: scleral icterus, conjunctival injection, periorbital swelling ENT exam: Present: normal exam, mucous membranes moist Neck exam: Present: normal inspection. Absent: tenderness, meningismus, lymphadenopathy Respiratory exam: Present: normal lung sounds bilaterally. Absent: respiratory distress, wheezes, rales, rhonchi, stridor Cardiovascular Exam: Present: regular rate, normal rhythm, normal heart sounds. Absent: systolic murmur, diastolic murmur, rubs, gallop, clicks GI/Abdominal exam: Present: soft, normal bowel sounds. Absent: distended, tenderness, guarding, rebound, rigid Extremities exam: Present: normal inspection, full ROM, normal capillary refill. Absent: tenderness, pedal edema, joint swelling, calf tenderness Back exam: Present: normal inspection Neurological exam: Present: alert, oriented X3, CN II-XII intact Psychiatric exam: Present: normal affect, normal mood Skin exam: Present: warm, dry, intact, normal color. Absent: rash Course Vital Signs 10/03/24 15:11 Temperature 97.7 F Pulse Rate 96 Respiratory 17 Rate Blood Pressure 116/73 O2 Sat by Pulse 98 Oximetry - Reevaluation(s) Reevaluation #1: 10/03/24 16:07 Medical records reviewed Reevaluation #4: Was pt. sent in by a medical professional or institution (, PA, [employer]ESSING [employer]ANT MANAGER, urgent care, hospital, or fpc...) When possible be specific @ -no Did you speak to anyone other than the patient for history (EMS, parent, family, police, friend...)? What history was obtained from this source @ -no Did you review nursing and triage notes (agree or disagree)? Why? @ -agree Are old charts reviewed (outside hosp., previous admission, EMS record, old EKG, old radiological studies, urgent care reports/EKG's, fpc records)? Report findings @ -yes Differential Diagnosis (chest pain, altered mental status, abdominal pain women, abdominal pain men, vaginal bleeding, weakness, fever, dyspnea, syncope, headache, dizziness, GI bleed, back pain, seizure, CVA, palpatations, mental health, musculoskeletal)? @ -prior EKG interpreted by me (3pts min.). @ -yes X-rays interpreted by me (1pt min.). @ -yes negative for acute disease CT interpreted by me (1pt min.). @ -no U/S interpreted by me (1pt. min.). @ -no What testing was considered but not performed or refused? (CT, X-rays, U/S, labs)? Why? @ -none What meds were considered but not given or refused? Why? @ -none Did you discuss the management of the patient with other professionals (professionals i.e. , PA, FO[employer] PROCESSING PLANT MANAGER, lab, RT, psych nurse, social media specialist, obstetrics gynecology md, te acher, access control officer, rn case manager)? Give summary @ -no Was smoking cessation discussed for >3mins.? @ -no Was critical care preformed (if so, how long)? @ -no Were there social determinants of health that impacted care today? How? (Homelessness, low income, unemployed, alcoholism, drug addiction, transportation, low edu. Level, literacy, decrease access to med. care, custodial, rehab)? @ -none Was there de-escalation of care discussed even if they declined (Discuss DNR or withdrawal of care, Hospice)? DNR status @ -no What co-morbidities impacted this encounter? (DM, HTN, Smoking, COPD, CAD, Cancer, CVA, ARF, Chemo, Hep., AIDS, mental health diagnosis, sleep apnea, morbid obesity)? @ -none Was patient admitted / discharged? Hospital course, mention meds given and route, prescriptions, significant lab abnormalities, going to OR and other pertinent info. @ - Undiagnosed new problem with uncertain prognosis? @ -no Drug Therapy requiring intensive monitoring for toxicity (Heparin, Nitro, Insulin, Cardizem)? @ -no Were any procedures done? @ -no Diagnosis/symptom? @ - Acute, or Chronic, or Acute on Chronic? @ -Acute Uncomplicated (without systemic symptoms) or Complicated (systemic symptoms)? @ -Complicated Side effects of treatment? @ -no Exacerbation, Progression, or Severe Exacerbation? @ -exacerbation Poses a threat to life or bodily function? How? (Chest pain, [place], [place], pneumonia, PE, COPD, DKA, ARF, appy, cholecystitis, CVA, Diverticulitis, Homicidal, Suicidal, threat to staff... and all critical care pts) @ -yes Reevaluation #5: Differential Altered Mental Status: Hypoglycemia, DKA, hypercapnia, ETOH, overdose, CO poisoning, trauma, myxedema coma, HTN encephalopathy, infection, encephalitis, psychosis, intercranial hemorrhage, hepatic encephalopathy, meningitis, CVA, this is not meant to be an all-inclusive list Differential Mental Health Depression, anxiety, bipolar, psychosis, schizophrenia, borderline personality, situational depression, adjustment disorder, behavioral disorder, brain tumor, malingering, substance abuse, encephalopathy, medication reaction, dementia, hypothyroidism, degenerative neurologic disorder, lupus.... This is not meant to be all-inclusive list Medical Decision Making - Lab Data Result diagrams: 10/03/24 16:05 Lab Results 10/03/24 Range/Units 16:05 Sodium 139 (137-145) mmol/L Potassium 4.0 (3.5-5.1) mmol/L Chloride 104 (98-107) mmol/L Carbon Dioxide 21 L (22-30) mmol/L Anion Gap 14 mmol/L BUN 13 (9-20) mg/dL Creatinine 0.88 (0.66-1.25) mg/dL Est GFR (CKD-EPI)AfAm >90 (>60 ml/min/1.73 sqM) Est GFR (CKD-EPI)NonAf >90 (>60 ml/min/1.73 sqM) Glucose 74 (74-99) mg/dL Calcium 9.2 (8.4-10.2) mg/dL Phosphorus 3.3 (2.5-4.5) mg/dL Magnesium 2.3 (1.6-2.3) mg/dL Total Bilirubin 0.5 (0.2-1.3) mg/dL AST 21 (17-59) U/L ALT 19 (4-49) U/L Alkaline Phosphatase 48 (38-126) U/L Total Protein 7.2 (6.3-8.2) g/dL Albumin 4.5 (3.5-5.0) g/dL Lipase 117 (23-300) U/L Serum Alcohol 248 H* mg/dL Disposition Clinical Impression: Alcohol withdrawal syndrome, Alcohol intoxication Disposition: ADMITTED IP TO THIS HOSP Condition: Fair Is patient prescribed a controlled substance at d/c from ED?: No Referrals: None,Stated [Primary Care Provider] - 1-2 days Time of Disposition: 18:00
[2024-10-03] MEDS ORDERED: LORazepam 0.5 MG TAB PO PRN (15:48)
[2024-10-03] MEDS ORDERED: diphenhydrAMINE 50 MG/ML 1 ML VIAL IVP PRN (15:48)
[2024-10-03] MEDS ORDERED: LORazepam 1 MG TAB PO PRN ×2 (15:48)
[2024-10-03] MEDS ORDERED: LORazepam 2 MG/ML INJ IV PRN ×3 (15:48)
[2024-10-03] MEDS: SODIUM CHLORIDE 0.9% 1,000 ML IV STA (16:09)
[2024-10-03] MEDS: diphenhydrAMINE 50 MG/ML 1 ML VIAL IVP STA (16:10)
[2024-10-03] MEDS: LORazepam 2 MG/ML INJ IV STA (16:12)
[2024-10-03 16:28] LABS: ALT 19 U/L (4-49); AST 21 U/L (17-59); African American GFR (CKD) >90 (>60 ml/min/1.73 sqM); Albumin 4.5 g/dL (3.5-5.0); Alkaline Phosphatase 48 U/L (38-126); Anion Gap 14 mmol/L; Blood Urea Nitrogen 13 mg/dL (9-20); Calcium 9.2 mg/dL (8.4-10.2); Carbon Dioxide 21 mmol/L (22-30); Chloride 104 mmol/L (98-107); Glucose 74 mg/dL (74-99); Lipase 117 U/L (23-300); Magnesium 2.3 mg/dL (1.6-2.3); Non-African American GFR(CKD) >90 (>60 ml/min/1.73 sqM); Phosphorus 3.3 mg/dL (2.5-4.5); Sodium 139 mmol/L (137-145); Total Bilirubin 0.5 mg/dL (0.2-1.3); Total Protein 7.2 g/dL (6.3-8.2)
[2024-10-03 16:34] LABS: Alcohol 248 mg/dL
[2024-10-03] MEDS: DEXTROSE 5%-0.45% NACL 1,000 ML IV SCH (18:16)
[2024-10-03] MEDS ORDERED: NALOXONE 0.4 MG/ML 1 ML VIAL IV PRN (18:17)
[2024-10-03 18:40] VITALS: RESP 18; TEMP 97.8
[2024-10-03 20:08] VITALS: BP 121/75; PULSE 107
[2024-10-03] MEDS: LORazepam 1 MG TAB PO PRN (20:30)
[2024-10-04] MEDS ORDERED: THIAMINE 100 MG TAB PO SCH (09:00)
[2024-10-04] MEDS ORDERED: FOLIC ACID 1 MG TAB PO SCH (09:00)
[2024-10-04] MEDS ORDERED: MULTIVITAMINS, THERA 1 EACH TAB PO SCH (09:00)
== END 2024-10-03 22:45 | disposition left against medical advice (07) ==
LOC: EC 15:10 → 6NMEDSUR 18:17 → 4SSUR 20:24
PROVIDERS: ADMIT Internal Medicine; ATTEND Internal Medicine
DX: F10.230 Alcohol dependence with withdrawal, uncomplicated (principal); F10.220 Alcohol dependence with intoxication, uncomplicated; Y90.8 Blood alcohol level of 240 mg/100 ml or more; F32.A Depression, unspecified; F41.9 Anxiety disorder, unspecified; F17.200 Nicotine dependence, unspecified, uncomplicated; Z79.899 Other long term (current) drug therapy; Z53.29 Procedure and treatment not carried out because of patient's decision for other reasons
CPT/HCPCS: 96376; 96374; 96375; 99285; 36415; 80053; 83690; 83735; 84100; 80320; G0378 ×2; J2060; J1200; J3360